=== PATIENT | female | born 1930 | race Caucasian/White ===

== ENCOUNTER 2017-06-05 21:09 | Inpatient (IN) | payer MEDICARE ==
[~2017-06-05] VITALS: Ht 170.2 cm; Wt 90.9 kg
[~2017-06-05 21:09] MED LIST: CYTOMEL0.005 MG PO
[2017-06-05 22:45] LABS: COLLECTION METHOD CLEAN CATCH
[2017-06-05 22:45] LABS: BASO % 0.3 % (0.0-2.0); EOS % 0.1 % (0-4.0); GRAN # 12.6 (1.4-6.5); HEMATOCRIT 43.4 % (37.0-47.0); HEMOGLOBIN 14.5 g/dl (12.5-16.0); LYMPH # 1.8 (1.2-3.4); LYMPH % 11.9 % (20.0-51.0); MEAN CELL VOLUME 90 fl (80.0-100.0); MEAN CORPUSCULAR HEMOGLOBIN 30 pg (27.0-31.0); MEAN CORPUSCULAR HGB CONC 33 g/dl (33.0-37.0); MONO # 0.8 (0.1-0.6); MONO % 5.3 % (1.7-9.3); PLATELET COUNT 201 K/mm3 (130-400); RED BLOOD COUNT 4.81 M/mm3 (4.10-5.30); REDCELL DISTRIBUTION WIDTH-CV 14.4 % (11.5-14.5)
[2017-06-05 22:57] LABS: MUCOUS Present /lpf; PH 5 (5-8); SQUAMOUS EPITHELIAL 0-2 /hpf; URINE APPEARANCE Cloudy; URINE BACTERIA Many /hpf; URINE BILIRUBIN Negative (NEGATIVE); URINE BLOOD 1+ (NEGATIVE); URINE COLOR Yellow; URINE GLUCOSE Negative (NEGATIVE); URINE KETONE Negative (NEGATIVE); URINE LEUKOCYTE ESTERASE 3+ (NEGATIVE); URINE NITRATE Positive (NEGATIVE); URINE PROTEIN(semi-quant) 1+ (NEGATIVE); URINE UROBILINOGEN Negative (NEGATIVE)
[2017-06-05 22:59] LABS: ALBUMIN 3.6 gm/dL (3.5-5.0); BILIRUBIN,TOTAL 0.8 mg/dL (0.0-1.0); CALCIUM 8.5 mg/dL (8.4-10.2); CREATININE, serum 0.87 mg/dL (0.52-1.25); POTASSIUM 4.3 mmol/L (3.4-5.0); TOTAL PROTEIN 7.6 gm/dL (6.4-8.2)
[2017-06-06] MEDS ORDERED: VITAMIN E1000 U/CAP PO (01:23)
[2017-06-06] MEDS ORDERED: PRESERVISION AREDS PO (01:23)
[2017-06-06] MEDS ORDERED: VITAMINC1000TA PO (01:24)
[2017-06-06 02:50] VITALS: BP 141/86; PULSE 70; TEMP 97.9
[2017-06-06] MEDS ORDERED: CYTOMEL 5MC5 MCG/TAB PO (03:49)
[2017-06-06] MEDS ORDERED: ALREX 5 ML5 ML OP (03:52)
[2017-06-06 06:08] LABS: BASO % 0.3 % (0.0-2.0); EOS # 0.1 (0.0-0.7); EOS % 0.7 % (0-4.0); GRAN # 9.6 (1.4-6.5); GRAN % 75.6 % (42.2-75.2); HEMATOCRIT 37.4 % (37.0-47.0); LYMPH % 16.1 % (20.0-51.0); MEAN CELL VOLUME 91 fl (80.0-100.0); MEAN CORPUSCULAR HEMOGLOBIN 30 pg (27.0-31.0); MEAN CORPUSCULAR HGB CONC 33 g/dl (33.0-37.0); MEAN PLATELET VOLUME 9.3 fl (7.4-10.4); MONO # 0.9 (0.1-0.6); MONO % 6.7 % (1.7-9.3); PLATELET COUNT 196 K/mm3 (130-400); RED BLOOD COUNT 4.12 M/mm3 (4.10-5.30); REDCELL DISTRIBUTION WIDTH-CV 14.4 % (11.5-14.5)
[2017-06-06 06:10] LABS: HEMOGLOBIN 12.3 g/dl (12.5-16.0)
[2017-06-06 06:16] LABS: CALCIUM 7.5 mg/dL (8.4-10.2); CREATININE, serum 0.81 mg/dL (0.52-1.25); POTASSIUM 3.8 mmol/L (3.4-5.0)
[2017-06-06 09:00] VITALS: BP 108/50; PULSE 83; TEMP 98.3
[2017-06-06 12:22] VITALS: BP 135/68; PULSE 82; TEMP 97.5
[2017-06-06 16:44] VITALS: BP 137/60; PULSE 83; TEMP 98.1
[2017-06-06 19:09] VITALS: BP 139/61; PULSE 90; TEMP 98.2
[2017-06-06 23:49] VITALS: BP 155/66; PULSE 67; TEMP 98.7
[2017-06-07 03:32] VITALS: BP 134/62; PULSE 73; TEMP 98.9
[2017-06-07 06:58] LABS: BASO % 0.4 % (0.0-2.0); EOS # 0.3 (0.0-0.7); EOS % 2.5 % (0-4.0); GRAN # 6.7 (1.4-6.5); GRAN % 64.1 % (42.2-75.2); HEMATOCRIT 40.5 % (37.0-47.0); HEMOGLOBIN 13.1 g/dl (12.5-16.0); LYMPH # 2.5 (1.2-3.4); LYMPH % 23.5 % (20.0-51.0); MEAN CELL VOLUME 93 fl (80.0-100.0); MEAN CORPUSCULAR HEMOGLOBIN 30 pg (27.0-31.0); MEAN CORPUSCULAR HGB CONC 32 g/dl (33.0-37.0); MEAN PLATELET VOLUME 9.3 fl (7.4-10.4); MONO # 0.9 (0.1-0.6); PLATELET COUNT 241 K/mm3 (130-400); RED BLOOD COUNT 4.38 M/mm3 (4.10-5.30); REDCELL DISTRIBUTION WIDTH-CV 14.5 % (11.5-14.5)
[2017-06-07 07:19] LABS: CALCIUM 8.3 mg/dL (8.4-10.2); CREATININE, serum 0.82 mg/dL (0.52-1.25); MAGNESIUM 2.1 mg/dL (1.6-2.3); POTASSIUM 3.9 mmol/L (3.4-5.0)
[2017-06-07 07:29] VITALS: BP 129/56; PULSE 95; TEMP 97.6
[2017-06-07] MEDS ORDERED: CEPHALEXIN500 M1 PO (09:21)
[2017-06-07 11:27] VITALS: BP 146/77; PULSE 63; TEMP 98
== END 2017-06-07 14:00 | disposition home or self-care (01) | DRG 872 ==
LOC: COL.ER 21:09 → PEDS 06-06 01:51
PROVIDERS: Emergency Medicine; Nurse Practitioner Family
DX: A41.9 Sepsis, unspecified organism (principal); N39.0 Urinary tract infection, site not specified; H60.12 Cellulitis of left external ear; H35.30 Unspecified macular degeneration; E03.9 Hypothyroidism, unspecified; Z66 Do not resuscitate
CPT/HCPCS: 99222-AI; 99239; J0696; J2543; J7030; Q9967